=== PATIENT | male | born 1940 | race American Indian/Alaskan Native ===

== ENCOUNTER 2021-02-18 11:41 | Emergency (ER) | payer OTHER ==
[~2021-02-18] VITALS: Ht 167.6 cm; Wt 68.0 kg
[2021-02-18] MEDS ORDERED: ARICEPT10 MG PO (11:56)
[2021-02-18] MEDS ORDERED: TYLENOL ARTHRI650 MG PO (11:56)
[2021-02-18] MEDS ORDERED: [UNRECOGNIZED DRUG - OTHER] PO (11:56)
== END 2021-02-18 16:02 | disposition home or self-care (01) ==
LOC: ER 11:41
DX: S00.83XA Contusion of other part of head, initial encounter (principal); S80.02XA Contusion of left knee, initial encounter; S80.01XA Contusion of right knee, initial encounter; W18.09XA Striking against other object with subsequent fall, initial encounter; Y93.89 Activity, other specified; Y92.238 Other place in hospital as the place of occurrence of the external cause; Y99.8 Other external cause status